=== PATIENT | female | born 1955 | race Hispanic/Latino ===

== ENCOUNTER → 2017-08-05 | Outpatient (CLI) | payer OTHER | END | disposition home or self-care (01) | LOC: RAH 13:29 | PROVIDERS: ATTEND Family Medicine | DX: N60.22 Fibroadenosis of left breast (principal) | CPT/HCPCS: 76641 ==

== ENCOUNTER → 2017-11-15 | Outpatient (CLI) | payer OTHER ==
[~2017-11-15] MED LIST: LIDOCAINE 1%-EPI 1:100,000 20 ML VIAL IJ ONE
[2017-11-15 10:30] LABS: INR 0.95 (0.85-1.15); PARTIAL THROMBOPLASTIN TIME 26.9 SEC (26.3-35.5)
== END | disposition home or self-care (01) ==
LOC: RAH 09:14
PROVIDERS: ATTEND Family Medicine
DX: D05.12 Intraductal carcinoma in situ of left breast (principal); N60.92 Unspecified benign mammary dysplasia of left breast; I99.8 Other disorder of circulatory system
CPT/HCPCS: 19083; 36415; 76942; 77065; 85610; 85730; 88305; A4215 ×3; J3490

== ENCOUNTER → 2018-06-27 | Outpatient (CLI) | payer OTHER | END | disposition home or self-care (01) | LOC: OIH 09:16 | PROVIDERS: ATTEND Family Medicine | DX: M25.472 Effusion, left ankle (principal); M19.072 Primary osteoarthritis, left ankle and foot | CPT/HCPCS: 73610 ==

== ENCOUNTER → 2018-10-31 | Outpatient (CLI) | payer OTHER | END | disposition home or self-care (01) | LOC: RAH 14:54 | PROVIDERS: ATTEND Family Medicine | DX: M25.512 Pain in left shoulder (principal) | CPT/HCPCS: 73221 ==

== ENCOUNTER → 2018-11-10 | Outpatient (CLI) | payer OTHER | END | disposition home or self-care (01) | LOC: RAH 11:23 | PROVIDERS: ATTEND Family Medicine | DX: N28.1 Cyst of kidney, acquired (principal) | CPT/HCPCS: 76770 ==

== ENCOUNTER → 2019-05-17 | Outpatient (CLI) | payer OTHER | END | disposition home or self-care (01) | LOC: OIH 09:53 | PROVIDERS: ATTEND Family Medicine | DX: M25.551 Pain in right hip (principal); M85.88 Other specified disorders of bone density and structure, other site; M47.816 Spondylosis without myelopathy or radiculopathy, lumbar region | CPT/HCPCS: 73502 ==

== ENCOUNTER 2021-05-07 16:21 | Inpatient (IN) | payer OTHER ==
[~2021-05-07] VITALS: Ht 157.5 cm; Wt 91.8 kg
[2021-05-07 16:58] LABS: BASOPHILS % (AUTO) 0.3 % (0.0-5.0); EOSINOPHILS % (AUTO) 0.9 % (0.0-8.0); LYMPHOCYTES % (AUTO) 16.9 % (21.0-51.0); MEAN CORPUSCULAR HEMOGLOBIN 28.1 pg (27.0-33.0); MEAN CORPUSCULAR VOLUME 85.1 fL (79-99); MONOCYTES % (AUTO) 7.8 % (3.0-13.0); NEUTROPHILS % (AUTO) 73.4 % (40.0-77.0); PLATELET COUNT (AUTO) 255 K/uL (130-400); RED CELL DISTRIBUTION WIDTH 13.3 % (11.0-15.5); WHITE BLOOD COUNT (AUTO) 5.8 K/uL (4.8-10.8)
[2021-05-07 16:58] LABS: ABG BASE EXCESS 4.1 mmol/L (-2.0-3.0); ABG HCO3 27.8 mmol/L (21.0-28.0); ABG OXYGEN SATURATION 95.5 % (95.0-99.0); ABG PCO2 39 mmHg (32-45)
[2021-05-07] MEDS ORDERED: FAMOTIDINE 20MG VIAL IV STA (17:06)
[2021-05-07 17:17] LABS: POTASSIUM 3.7 mmol/L (3.5-5.1)
[2021-05-07 17:22] LABS: ALBUMIN 2.1 g/dL (3.5-5.0); BILIRUBIN,TOTAL 0.5 mg/dL (0.2-1.0); TOTAL PROTEIN, SERUM 6.7 g/dL (6.0-8.3)
[2021-05-07] MEDS ORDERED: CEFTRIAXONE 1G VIAL IVP ONE (17:30)
[2021-05-07] MEDS ORDERED: CEFTRIAXONE 1G VIAL 1 GM in 0.9%NACL 100ML 100 ML IV ONE (17:30)
[2021-05-07] MEDS ORDERED: SOLU-MEDROL 125MG VIAL IVP ONE (17:30)
[2021-05-07] MEDS: ALBUTEROL INHALER 90MCG/INH IH SCH ×2 (17:56→23:36)
[2021-05-07] MEDS ORDERED: ALBUTEROL INHALER 90MCG/INH IH ONE (17:56)
[2021-05-07] MEDS ORDERED: AZITHROMYCIN 500MG+NS 250ML IV STA (18:07)
[2021-05-07] MEDS ORDERED: LACTULOSE 20 GM/30 ML UDCUP PO PRN (19:30)
[2021-05-07] MEDS ORDERED: ACETAMINOPHEN 325 MG TAB PO PRN (19:30)
[2021-05-07] MEDS ORDERED: HYDRALAZINE 20MG/ML VIAL IV PRN (19:30)
[2021-05-07] MEDS ORDERED: GUAIFENESIN-DM 200/20 MG 10 ML PO PRN (19:30)
[2021-05-07] MEDS ORDERED: POTASSIUM CHLORIDE 10% ELIXIR 20 MEQ/15 ML UDCUP PO PRN (19:30)
[2021-05-07] MEDS ORDERED: NITROGLYCERIN 0.4 MG SL TAB SL PRN (19:30)
[2021-05-07] MEDS ORDERED: LIDOCAINE HCL-MPF 1% 2ML VIAL IV PRN (19:30)
[2021-05-07] MEDS ORDERED: 0.9%NACL 1000ML 1,000 ML IV SCH (19:30)
[2021-05-07] MEDS ORDERED: ONDANSETRON 4MG INJ IV PRN (19:30)
[2021-05-07] MEDS ORDERED: SOLU-MEDROL 125MG VIAL IV SCH (19:30)
[2021-05-07] MEDS ORDERED: POTASSIUM CHLORIDE 20MEQ/100ML 100 ML IV PRN (19:30)
[2021-05-07] MEDS ORDERED: REMDESIVIR (EUA) 520 200 MG in 0.9% NACL 250ML 250 ML IV ONE (20:00)
[2021-05-07] MEDS ORDERED: COMPOUND IV REFRIGERATED 1 EACH IVSOLN MISC PRN (20:00)
[2021-05-07] MEDS ORDERED: PHARMACY COMMUNICATION MISC SCH (20:00)
[2021-05-07] MEDS ORDERED: GLUCAGON 1MG KIT 1 MG ML IM PRN (21:00)
[2021-05-07] MEDS ORDERED: DEXTROSE 50%-WATER 50 ML DISP.SYRIN IV PRN (21:00)
[2021-05-07] MEDS: INSULIN HUMULIN R 100 UNIT/ML 3ML SQ SCH (21:00)
[2021-05-07 21:31] LABS: HEMOGLOBIN A1C 7.9 % (4.0-6.0)
[2021-05-07] MEDS ORDERED: CETI10TA57 PO (21:33)
[2021-05-07] MEDS ORDERED: BACL10TA PO (21:33)
[2021-05-07] MEDS ORDERED: CANA300T PO (21:33)
[2021-05-07] MEDS ORDERED: ESCI-8 PO (21:33)
[2021-05-07] MEDS ORDERED: ATOR10 PO (21:33)
[2021-05-07] MEDS ORDERED: VITAD50000 PO (21:33)
[2021-05-07] MEDS ORDERED: ISOS30TA92 PO (21:33)
[2021-05-07] MEDS ORDERED: AMLO-258 PO (21:33)
[2021-05-07] MEDS ORDERED: ASPI-1197 PO (21:33)
[2021-05-07] MEDS ORDERED: VALS1TAB77 PO (21:33)
[2021-05-07] MEDS ORDERED: TAMO20TA4 PO (21:33)
[2021-05-07] MEDS ORDERED: OMEP20CA12 PO (21:33)
[2021-05-07] MEDS ORDERED: MONT-39 PO (21:33)
[2021-05-07] MEDS ORDERED: METO-409 PO (21:33)
[2021-05-07 21:36] LABS: ALBUMIN 1.9 g/dL (3.5-5.0); BILIRUBIN,DIRECT 0.2 mg/dL (0.0-0.3); BILIRUBIN,TOTAL 0.4 mg/dL (0.2-1.0); TOTAL PROTEIN, SERUM 6.2 g/dL (6.0-8.3)
[2021-05-07] MEDS ORDERED: IOHEXOL 350 MG/ML 100ML INFUS..BTL IV ONE (21:38)
[2021-05-07] MEDS: SOLU-MEDROL 40MG VIAL IVP SCH (21:55)
[2021-05-07] MEDS: CEFTRIAXONE 1G VIAL IV SCH (21:55)
[2021-05-07] MEDS: FAMOTIDINE 20MG TAB PO SCH (21:55)
[2021-05-07] MEDS: AZITHROMYCIN 250 MG TABLET PO SCH (21:55)
[2021-05-07] MEDS: BENZONATATE 100 MG CAPSULE PO SCH (21:55)
[2021-05-07] MEDS: IPRATROPIUM 0.5 MG/2.5 ML INH IH SCH (22:07)
[2021-05-07 22:28] LABS: APPEARANCE,URINE Clear (CLEAR); BILIRUBIN,URINE Negative (NEGATIVE); COLOR,URINE Yellow (YELLOW); GLUCOSE, URINE (UA) >=1000 mg/dL (NEGATIVE); KETONES,URINE Negative (NEGATIVE); LEUKOCYTE ESTERASE ,URINE Trace (NEGATIVE); NITRATE,URINE Positive (NEGATIVE); OCCULT BLOOD,URINE Negative (NEGATIVE); PH,URINE 6.5 (5.0-8.0); PROTEIN,URINE POS 1+ mg/dL (NEGATIVE)
[2021-05-07 22:41] LABS: RBC,URINE 0-1 /HPF (0-1)
[2021-05-07 22:42] LABS: BACTERIA,URINE Moderate /HPF (None Seen); SQUAMOUS EPITHELIAL CELL,UR Moderate /HPF (0-2)
[2021-05-07 23:10] VITALS: BP 144/65
[2021-05-07] MEDS: KCL 20 MEQ ERTAB PO PRN (23:49)
[2021-05-08] MEDS: IPRATROPIUM 0.5 MG/2.5 ML INH IH SCH ×4 (02:19→15:37)
[2021-05-08] MEDS: SOLU-MEDROL 40MG VIAL IVP SCH ×3 (03:35→20:23)
[2021-05-08] MEDS: KCL 20 MEQ ERTAB PO PRN ×2 (03:35→17:42)
[2021-05-08 03:42] VITALS: BP 143/65
[2021-05-08 04:51] LABS: BASOPHILS % (AUTO) 0.3 % (0.0-5.0); HEMATOCRIT 40.8 % (36-48); MEAN CORPUSCULAR HEMOGLOBIN 28.5 pg (27.0-33.0); MEAN CORPUSCULAR HGB CONC 33.6 g/dL (32.0-36.0); MEAN CORPUSCULAR VOLUME 84.8 fL (79-99); MONOCYTES % (AUTO) 2.8 % (3.0-13.0); NEUTROPHILS % (AUTO) 74.1 % (40.0-77.0); PLATELET COUNT (AUTO) 253 K/uL (130-400); RED BLOOD CELL COUNT(AUTO) 4.81 MIL/uL (4.00-5.50); RED CELL DISTRIBUTION WIDTH 13.5 % (11.0-15.5); WHITE BLOOD COUNT (AUTO) 3.6 K/uL (4.8-10.8)
[2021-05-08 05:24] LABS: BILIRUBIN,TOTAL 0.3 mg/dL (0.2-1.0); CREATININE 0.9 mg/dL (0.5-1.5); MAGNESIUM 2.5 mg/dL (1.80-2.40); PHOSPHORUS 4.3 mg/dL (2.5-4.9); POTASSIUM 3.8 mmol/L (3.5-5.1); THYROID STIMULATING HORMONE 0.4 uIU/mL (0.36-3.74); TOTAL PROTEIN, SERUM 6.6 g/dL (6.0-8.3)
[2021-05-08] MEDS: ALBUTEROL INHALER 90MCG/INH IH SCH ×4 (05:33→23:50)
[2021-05-08] MEDS: REMDESIVIR LABS MISC SCH (06:00)
[2021-05-08] MEDS: INSULIN HUMULIN R 100 UNIT/ML 3ML SQ SCH ×4 (06:16→20:27)
[2021-05-08 08:00] VITALS: BP 134/52
[2021-05-08] MEDS ORDERED: ENOXAPARIN SODIUM 1 MG/KG SQ SCH (09:00)
[2021-05-08] MEDS ORDERED: ENOXAPARIN SODIUM 40 MG/0.4 ML SYRINGE SQ SCH (09:00)
[2021-05-08] MEDS: ENOXAPARIN SODIUM 100 MG/1 ML SQ SCH ×2 (09:48→20:23)
[2021-05-08] MEDS: FAMOTIDINE 20MG TAB PO SCH ×2 (09:48→20:23)
[2021-05-08] MEDS: BENZONATATE 100 MG CAPSULE PO SCH ×3 (09:48→20:23)
[2021-05-08 12:00] VITALS: BP 129/52
[2021-05-08 16:00] VITALS: BP 137/54
[2021-05-08 20:10] VITALS: BP 142/69
[2021-05-08] MEDS: AZITHROMYCIN 250 MG TABLET PO SCH (20:23)
[2021-05-08] MEDS: CEFTRIAXONE 1G VIAL IV SCH (20:24)
[2021-05-08] MEDS: REMDESIVIR (EUA) 520 100 MG in 0.9% NACL 250ML 250 ML IV SCH (20:24)
[2021-05-08 23:33] VITALS: BP 146/73
[2021-05-09] MEDS: SOLU-MEDROL 40MG VIAL IVP SCH ×3 (03:06→21:02)
[2021-05-09 03:53] VITALS: BP 137/63
[2021-05-09 03:59] LABS: BASOPHILS % (AUTO) 0.1 % (0.0-5.0); HEMATOCRIT 40.6 % (36-48); LYMPHOCYTES % (AUTO) 12.1 % (21.0-51.0); MEAN CORPUSCULAR HEMOGLOBIN 28.4 pg (27.0-33.0); MEAN CORPUSCULAR HGB CONC 33.7 g/dL (32.0-36.0); MEAN CORPUSCULAR VOLUME 84.2 fL (79-99); MONOCYTES % (AUTO) 5.3 % (3.0-13.0); NEUTROPHILS % (AUTO) 81.9 % (40.0-77.0); PLATELET COUNT (AUTO) 329 K/uL (130-400); RED BLOOD CELL COUNT(AUTO) 4.82 MIL/uL (4.00-5.50); RED CELL DISTRIBUTION WIDTH 13.5 % (11.0-15.5); WHITE BLOOD COUNT (AUTO) 10.1 K/uL (4.8-10.8)
[2021-05-09 04:21] LABS: ALBUMIN 1.9 g/dL (3.5-5.0); BILIRUBIN,TOTAL 0.2 mg/dL (0.2-1.0); CREATININE 0.8 mg/dL (0.5-1.5); CRP QUANTITATIVE 40.1 mg/L (0.00-9.0); POTASSIUM 3.8 mmol/L (3.5-5.1); TOTAL PROTEIN, SERUM 6.4 g/dL (6.0-8.3)
[2021-05-09] MEDS: REMDESIVIR LABS MISC SCH (04:57)
[2021-05-09] MEDS ORDERED: LOPERAMIDE HCL 2 MG CAP PO PRN (05:00)
[2021-05-09] MEDS: ALBUTEROL INHALER 90MCG/INH IH SCH ×3 (05:16→17:02)
[2021-05-09] MEDS: INSULIN HUMULIN R 100 UNIT/ML 3ML SQ SCH ×4 (06:07→21:27)
[2021-05-09 08:00] VITALS: BP 148/68
[2021-05-09] MEDS: FAMOTIDINE 20MG TAB PO SCH ×2 (08:45→21:02)
[2021-05-09] MEDS: BENZONATATE 100 MG CAPSULE PO SCH ×3 (08:45→21:03)
[2021-05-09] MEDS: ENOXAPARIN SODIUM 100 MG/1 ML SQ SCH ×2 (08:46→21:02)
[2021-05-09 12:00] VITALS: BP 168/72
[2021-05-09] MEDS ORDERED: BACLOFEN 10 MG TABLET PO PRN (13:30)
[2021-05-09] MEDS ORDERED: CETIRIZINE HCL 5 MG TABLET PO PRN (13:30)
[2021-05-09 16:00] VITALS: BP 181/72
[2021-05-09 18:53] VITALS: BP 157/76
[2021-05-09 20:01] VITALS: BP 146/61
[2021-05-09] MEDS ORDERED: PHARMACY COMMUNICATION MISC SCH (21:00)
[2021-05-09] MEDS: LEXAPRO 10 MG PO SCH (21:00)
[2021-05-09] MEDS: CEFTRIAXONE 1G VIAL IV SCH (21:01)
[2021-05-09] MEDS: AZITHROMYCIN 250 MG TABLET PO SCH (21:02)
[2021-05-09] MEDS: REMDESIVIR (EUA) 520 100 MG in 0.9% NACL 250ML 250 ML IV SCH (21:02)
[2021-05-09] MEDS: MONTELUKAST SODIUM 10 MG TAB PO SCH (21:03)
[2021-05-09] MEDS: ATORVASTATIN 20 MG TABLET PO SCH (21:03)
[2021-05-10] VITALS (7 sets, daily range): BP systolic 132–169; BP diastolic 56–72
[2021-05-10] MEDS: ALBUTEROL INHALER 90MCG/INH IH SCH ×4 (01:27→18:31)
[2021-05-10] MEDS: SOLU-MEDROL 40MG VIAL IVP SCH ×3 (03:55→19:59)
[2021-05-10 04:10] LABS: BASOPHILS % (AUTO) 0.2 % (0.0-5.0); LYMPHOCYTES % (AUTO) 10.4 % (21.0-51.0); MEAN CORPUSCULAR HEMOGLOBIN 28.8 pg (27.0-33.0); MEAN CORPUSCULAR HGB CONC 33.7 g/dL (32.0-36.0); MEAN CORPUSCULAR VOLUME 85.6 fL (79-99); MONOCYTES % (AUTO) 4.9 % (3.0-13.0); NEUTROPHILS % (AUTO) 83.3 % (40.0-77.0); PLATELET COUNT (AUTO) 367 K/uL (130-400); RED BLOOD CELL COUNT(AUTO) 4.79 MIL/uL (4.00-5.50); RED CELL DISTRIBUTION WIDTH 13.8 % (11.0-15.5); WHITE BLOOD COUNT (AUTO) 10.8 K/uL (4.8-10.8)
[2021-05-10 04:35] LABS: ALBUMIN 1.9 g/dL (3.5-5.0); BILIRUBIN,TOTAL 0.3 mg/dL (0.2-1.0); CREATININE 0.8 mg/dL (0.5-1.5); POTASSIUM 4.1 mmol/L (3.5-5.1); TOTAL PROTEIN, SERUM 6.2 g/dL (6.0-8.3)
[2021-05-10] MEDS: REMDESIVIR LABS MISC SCH (06:00)
[2021-05-10] MEDS: PANTOPRAZOLE 40 MG TAB DR PO SCH (08:36)
[2021-05-10] MEDS: ASPIRIN 81MG CHEW TAB PO SCH (08:37)
[2021-05-10] MEDS: CITALOPRAM 20 MG TABLET PO SCH (08:37)
[2021-05-10] MEDS: METOPROLOL SUCCINATE 50 MG TAB.SR.24H PO SCH (08:37)
[2021-05-10] MEDS: BENZONATATE 100 MG CAPSULE PO SCH ×3 (08:37→20:03)
[2021-05-10] MEDS: LOSARTAN/HYDROCHLOROTHIAZIDE 50-12.5MG TABLET PO SCH (08:37)
[2021-05-10] MEDS: ISOSORBIDE MONO 30MG SR TAB PO SCH (08:37)
[2021-05-10] MEDS: AMLODIPINE 5 MG TAB PO SCH (08:37)
[2021-05-10] MEDS: TAMOXIFEN CITRATE 10 MG TABLET PO SCH (08:38)
[2021-05-10] MEDS: ENOXAPARIN SODIUM 100 MG/1 ML SQ SCH ×2 (08:38→20:04)
[2021-05-10] MEDS: FAMOTIDINE 20MG TAB PO SCH ×2 (08:39→20:03)
[2021-05-10] MEDS: INSULIN HUMULIN R 100 UNIT/ML 3ML SQ SCH ×3 (11:15→20:05)
[2021-05-10] MEDS: REMDESIVIR (EUA) 520 100 MG in 0.9% NACL 250ML 250 ML IV SCH (19:58)
[2021-05-10] MEDS: CEFTRIAXONE 1G VIAL IV SCH (19:59)
[2021-05-10] MEDS: AZITHROMYCIN 250 MG TABLET PO SCH (19:59)
[2021-05-10] MEDS: MONTELUKAST SODIUM 10 MG TAB PO SCH (20:03)
[2021-05-10] MEDS: ATORVASTATIN 20 MG TABLET PO SCH (20:03)
[2021-05-10] MEDS: LEXAPRO 10 MG PO SCH (20:48)
[2021-05-11] MEDS: ALBUTEROL INHALER 90MCG/INH IH SCH ×5 (00:27→23:35)
[2021-05-11] MEDS: SOLU-MEDROL 40MG VIAL IVP SCH ×3 (03:23→20:02)
[2021-05-11 03:27] VITALS: BP 149/63
[2021-05-11 04:49] LABS: BILIRUBIN,TOTAL 0.4 mg/dL (0.2-1.0); CREATININE 0.8 mg/dL (0.5-1.5); POTASSIUM 3.6 mmol/L (3.5-5.1)
[2021-05-11] MEDS: REMDESIVIR LABS MISC SCH (06:00)
[2021-05-11] MEDS: INSULIN HUMULIN R 100 UNIT/ML 3ML SQ SCH ×4 (06:14→20:06)
[2021-05-11 07:35] LABS: HEMATOCRIT 40.9 % (36-48); MEAN CORPUSCULAR VOLUME 84.9 fL (79-99); PLATELET COUNT (AUTO) 393 K/uL (130-400); RED BLOOD CELL COUNT(AUTO) 4.82 MIL/uL (4.00-5.50); RED CELL DISTRIBUTION WIDTH 13.8 % (11.0-15.5); WHITE BLOOD COUNT (AUTO) 10.5 K/uL (4.8-10.8)
[2021-05-11 08:00] VITALS: BP 183/75
[2021-05-11 08:14] LABS: BASOPHILS % (AUTO) 0.1 % (0.0-5.0); LYMPHOCYTES % (AUTO) 8.9 % (21.0-51.0); MONOCYTES % (AUTO) 5.1 % (3.0-13.0); NEUTROPHILS % (AUTO) 84.8 % (40.0-77.0)
[2021-05-11] MEDS: ASPIRIN 81MG CHEW TAB PO SCH (08:51)
[2021-05-11] MEDS: FAMOTIDINE 20MG TAB PO SCH ×2 (08:52→08:55)
[2021-05-11] MEDS: TAMOXIFEN CITRATE 10 MG TABLET PO SCH (08:52)
[2021-05-11] MEDS: ISOSORBIDE MONO 30MG SR TAB PO SCH (08:52)
[2021-05-11] MEDS: AMLODIPINE 5 MG TAB PO SCH (08:52)
[2021-05-11] MEDS: CITALOPRAM 20 MG TABLET PO SCH (08:52)
[2021-05-11] MEDS: LOSARTAN/HYDROCHLOROTHIAZIDE 50-12.5MG TABLET PO SCH (08:52)
[2021-05-11] MEDS: PANTOPRAZOLE 40 MG TAB DR PO SCH (08:53)
[2021-05-11] MEDS: METOPROLOL SUCCINATE 50 MG TAB.SR.24H PO SCH (08:54)
[2021-05-11] MEDS: BENZONATATE 100 MG CAPSULE PO SCH ×3 (08:54→20:04)
[2021-05-11] MEDS: ENOXAPARIN SODIUM 100 MG/1 ML SQ SCH ×2 (08:54→20:06)
[2021-05-11] MEDS: DIAZEPAM 5 MG TABLET PO PRN (11:48)
[2021-05-11 12:00] VITALS: BP 145/63
[2021-05-11 16:00] VITALS: BP 160/69
[2021-05-11 19:34] VITALS: BP 158/93
[2021-05-11] MEDS: REMDESIVIR (EUA) 520 100 MG in 0.9% NACL 250ML 250 ML IV SCH (20:01)
[2021-05-11] MEDS: AZITHROMYCIN 250 MG TABLET PO SCH (20:02)
[2021-05-11] MEDS: CEFTRIAXONE 1G VIAL IV SCH (20:02)
[2021-05-11] MEDS: ATORVASTATIN 20 MG TABLET PO SCH (20:04)
[2021-05-11] MEDS: MONTELUKAST SODIUM 10 MG TAB PO SCH (20:04)
[2021-05-11] MEDS: LEXAPRO 10 MG PO SCH (20:04)
[2021-05-11] MEDS ORDERED: NACL NASAL SPRAY 120 SPRAY/BOTTLE NS PRN (21:42)
[2021-05-11 23:35] VITALS: BP 133/42
[2021-05-12 03:44] VITALS: BP 160/55
[2021-05-12] MEDS: SOLU-MEDROL 40MG VIAL IVP SCH ×3 (03:44→20:30)
[2021-05-12 04:36] LABS: HEMATOCRIT 39.4 % (36-48); MEAN CORPUSCULAR HEMOGLOBIN 28.4 pg (27.0-33.0); MEAN CORPUSCULAR HGB CONC 33.8 g/dL (32.0-36.0); RED BLOOD CELL COUNT(AUTO) 4.69 MIL/uL (4.00-5.50); RED CELL DISTRIBUTION WIDTH 13.2 % (11.0-15.5); WHITE BLOOD COUNT (AUTO) 9.9 K/uL (4.8-10.8)
[2021-05-12 04:53] LABS: CREATININE 0.8 mg/dL (0.5-1.5); CRP QUANTITATIVE 7.7 mg/L (0.00-9.0); POTASSIUM 3.6 mmol/L (3.5-5.1)
[2021-05-12] MEDS: KCL 20 MEQ ERTAB PO PRN ×2 (06:16→10:12)
[2021-05-12] MEDS: ALBUTEROL INHALER 90MCG/INH IH SCH ×4 (06:17→23:27)
[2021-05-12] MEDS: INSULIN HUMULIN R 100 UNIT/ML 3ML SQ SCH ×4 (06:17→20:32)
[2021-05-12 08:00] VITALS: BP 177/94
[2021-05-12] MEDS: BENZONATATE 100 MG CAPSULE PO SCH ×3 (10:08→20:31)
[2021-05-12] MEDS: METOPROLOL SUCCINATE 50 MG TAB.SR.24H PO SCH (10:08)
[2021-05-12] MEDS: ASPIRIN 81MG CHEW TAB PO SCH (10:09)
[2021-05-12] MEDS: LOSARTAN/HYDROCHLOROTHIAZIDE 50-12.5MG TABLET PO SCH (10:10)
[2021-05-12] MEDS: TAMOXIFEN CITRATE 10 MG TABLET PO SCH (10:11)
[2021-05-12] MEDS: ISOSORBIDE MONO 30MG SR TAB PO SCH (10:11)
[2021-05-12] MEDS: PANTOPRAZOLE 40 MG TAB DR PO SCH (10:11)
[2021-05-12] MEDS: CITALOPRAM 20 MG TABLET PO SCH (10:11)
[2021-05-12] MEDS: AMLODIPINE 5 MG TAB PO SCH (10:11)
[2021-05-12] MEDS: ENOXAPARIN SODIUM 100 MG/1 ML SQ SCH ×2 (10:13→20:31)
[2021-05-12 12:00] VITALS: BP 148/67
[2021-05-12 16:00] VITALS: BP 147/76
[2021-05-12 19:41] VITALS: BP 135/51
[2021-05-12] MEDS: ATORVASTATIN 20 MG TABLET PO SCH (20:30)
[2021-05-12] MEDS: AZITHROMYCIN 250 MG TABLET PO SCH (20:30)
[2021-05-12] MEDS: LEXAPRO 10 MG PO SCH (20:30)
[2021-05-12] MEDS: CEFTRIAXONE 1G VIAL IV SCH (20:30)
[2021-05-12] MEDS: MONTELUKAST SODIUM 10 MG TAB PO SCH (20:30)
[2021-05-12 23:26] VITALS: BP 145/61
[2021-05-13 03:56] VITALS: BP 152/59
[2021-05-13 04:15] LABS: HEMATOCRIT 39.6 % (36-48); MEAN CORPUSCULAR HEMOGLOBIN 28.7 pg (27.0-33.0); MEAN CORPUSCULAR HGB CONC 34.6 g/dL (32.0-36.0); MEAN CORPUSCULAR VOLUME 82.8 fL (79-99); RED BLOOD CELL COUNT(AUTO) 4.78 MIL/uL (4.00-5.50); RED CELL DISTRIBUTION WIDTH 13.3 % (11.0-15.5); WHITE BLOOD COUNT (AUTO) 11.5 K/uL (4.8-10.8)
[2021-05-13 04:36] LABS: CREATININE 0.8 mg/dL (0.5-1.5); CRP QUANTITATIVE 2.8 mg/L (0.00-9.0); POTASSIUM 4.1 mmol/L (3.5-5.1)
[2021-05-13] MEDS: ALBUTEROL INHALER 90MCG/INH IH SCH ×4 (06:01→23:48)
[2021-05-13] MEDS: INSULIN HUMULIN R 100 UNIT/ML 3ML SQ SCH ×4 (06:01→21:37)
[2021-05-13] MEDS: INSULIN GLARGINE 100 UNITS/ML 10 ML VIAL SQ SCH ×2 (06:31→21:38)
[2021-05-13 08:00] VITALS: BP 141/56
[2021-05-13] MEDS: PANTOPRAZOLE 40 MG TAB DR PO SCH (09:03)
[2021-05-13] MEDS: LOSARTAN/HYDROCHLOROTHIAZIDE 50-12.5MG TABLET PO SCH (09:03)
[2021-05-13] MEDS: METOPROLOL SUCCINATE 50 MG TAB.SR.24H PO SCH (09:03)
[2021-05-13] MEDS: BENZONATATE 100 MG CAPSULE PO SCH ×3 (09:03→21:36)
[2021-05-13] MEDS: CITALOPRAM 20 MG TABLET PO SCH (09:04)
[2021-05-13] MEDS: ISOSORBIDE MONO 30MG SR TAB PO SCH (09:04)
[2021-05-13] MEDS: TAMOXIFEN CITRATE 10 MG TABLET PO SCH (09:04)
[2021-05-13] MEDS: AMLODIPINE 5 MG TAB PO SCH (09:04)
[2021-05-13] MEDS: SOLU-MEDROL 40MG VIAL IVP SCH ×2 (09:05→21:36)
[2021-05-13] MEDS: ENOXAPARIN SODIUM 100 MG/1 ML SQ SCH ×2 (09:05→21:37)
[2021-05-13] MEDS: ASPIRIN 81MG CHEW TAB PO SCH (09:05)
[2021-05-13 12:00] VITALS: BP 147/55
[2021-05-13 16:00] VITALS: BP 135/51
[2021-05-13 19:56] VITALS: BP 129/52
[2021-05-13] MEDS: CEFTRIAXONE 1G VIAL IV SCH (21:35)
[2021-05-13] MEDS: AZITHROMYCIN 250 MG TABLET PO SCH (21:35)
[2021-05-13] MEDS: ATORVASTATIN 20 MG TABLET PO SCH (21:36)
[2021-05-13] MEDS: LEXAPRO 10 MG PO SCH (21:36)
[2021-05-13] MEDS: MONTELUKAST SODIUM 10 MG TAB PO SCH (21:36)
[2021-05-13 23:44] VITALS: BP 157/59
[2021-05-14 04:16] VITALS: BP 144/52
[2021-05-14 04:25] LABS: CREATININE 0.8 mg/dL (0.5-1.5); POTASSIUM 4.2 mmol/L (3.5-5.1)
[2021-05-14 04:26] LABS: HEMATOCRIT 40.1 % (36-48); MEAN CORPUSCULAR HEMOGLOBIN 28.2 pg (27.0-33.0); MEAN CORPUSCULAR HGB CONC 33.4 g/dL (32.0-36.0); MEAN CORPUSCULAR VOLUME 84.4 fL (79-99); RED BLOOD CELL COUNT(AUTO) 4.75 MIL/uL (4.00-5.50); RED CELL DISTRIBUTION WIDTH 13.3 % (11.0-15.5); WHITE BLOOD COUNT (AUTO) 12.2 K/uL (4.8-10.8)
[2021-05-14] MEDS: ALBUTEROL INHALER 90MCG/INH IH SCH ×3 (06:24→17:22)
[2021-05-14] MEDS: INSULIN HUMULIN R 100 UNIT/ML 3ML SQ SCH ×4 (06:25→20:26)
[2021-05-14] MEDS: INSULIN GLARGINE 100 UNITS/ML 10 ML VIAL SQ SCH ×2 (06:26→20:26)
[2021-05-14 07:00] VITALS: BP 157/78
[2021-05-14] MEDS: LOSARTAN/HYDROCHLOROTHIAZIDE 50-12.5MG TABLET PO SCH (08:53)
[2021-05-14] MEDS: ENOXAPARIN SODIUM 100 MG/1 ML SQ SCH ×2 (08:53→20:25)
[2021-05-14] MEDS: BENZONATATE 100 MG CAPSULE PO SCH ×3 (08:54→20:23)
[2021-05-14] MEDS: ISOSORBIDE MONO 30MG SR TAB PO SCH (08:54)
[2021-05-14] MEDS: METOPROLOL SUCCINATE 50 MG TAB.SR.24H PO SCH (08:54)
[2021-05-14] MEDS: CITALOPRAM 20 MG TABLET PO SCH (08:55)
[2021-05-14] MEDS: PANTOPRAZOLE 40 MG TAB DR PO SCH (08:55)
[2021-05-14] MEDS: AMLODIPINE 5 MG TAB PO SCH (08:55)
[2021-05-14] MEDS: TAMOXIFEN CITRATE 10 MG TABLET PO SCH (08:55)
[2021-05-14] MEDS: ASPIRIN 81MG CHEW TAB PO SCH (08:55)
[2021-05-14] MEDS ORDERED: SOLU-MEDROL 40MG VIAL IVP SCH (09:00)
[2021-05-14 11:00] VITALS: BP 147/50
[2021-05-14 16:00] VITALS: BP 136/42
[2021-05-14 19:59] VITALS: BP 130/47
[2021-05-14] MEDS: MONTELUKAST SODIUM 10 MG TAB PO SCH (20:23)
[2021-05-14] MEDS: ATORVASTATIN 20 MG TABLET PO SCH (20:23)
[2021-05-14] MEDS: CEFTRIAXONE 1G VIAL IV SCH (20:23)
[2021-05-14] MEDS: SOLU-MEDROL 40MG VIAL IVP SCH (20:23)
[2021-05-14] MEDS: AZITHROMYCIN 250 MG TABLET PO SCH (20:23)
[2021-05-14] MEDS: LEXAPRO 10 MG PO SCH (20:27)
[2021-05-14] MEDS: DIAZEPAM 5 MG TABLET PO PRN (21:44)
[2021-05-15] VITALS (7 sets, daily range): BP systolic 125–154; BP diastolic 45–66
[2021-05-15] MEDS: ALBUTEROL INHALER 90MCG/INH IH SCH ×5 (00:31→23:41)
[2021-05-15 04:15] LABS: BASOPHILS % (AUTO) 0.2 % (0.0-5.0); LYMPHOCYTES % (AUTO) 5.8 % (21.0-51.0); MEAN CORPUSCULAR HEMOGLOBIN 28.4 pg (27.0-33.0); MEAN CORPUSCULAR HGB CONC 33.1 g/dL (32.0-36.0); MEAN CORPUSCULAR VOLUME 85.7 fL (79-99); MONOCYTES % (AUTO) 4.1 % (3.0-13.0); NEUTROPHILS % (AUTO) 88.5 % (40.0-77.0); PLATELET COUNT (AUTO) 309 K/uL (130-400); RED BLOOD CELL COUNT(AUTO) 4.55 MIL/uL (4.00-5.50); RED CELL DISTRIBUTION WIDTH 13.5 % (11.0-15.5); WHITE BLOOD COUNT (AUTO) 13.3 K/uL (4.8-10.8)
[2021-05-15 04:30] LABS: CARBON DIOXIDE 30 mmol/L (21-32); CHLORIDE 105 mmol/L (101-111); CREATININE 0.8 mg/dL (0.5-1.5); CRP QUANTITATIVE < 2.00 mg/L (0.00-9.0); GLOMERULAR FILTR. RATE CALC 76 mL/min (>60); GLUCOSE,RANDOM 243 mg/dL (70-105); POTASSIUM 4.3 mmol/L (3.5-5.1); SODIUM SERUM 141 mmol/L (136-145); UREA NITROGEN, BLOOD 26 mg/dL (7-18)
[2021-05-15] MEDS: INSULIN HUMULIN R 100 UNIT/ML 3ML SQ SCH ×4 (06:21→20:27)
[2021-05-15] MEDS: INSULIN GLARGINE 100 UNITS/ML 10 ML VIAL SQ SCH ×2 (06:22→20:28)
[2021-05-15 08:07] LABS: ABG BASE EXCESS 6.2 mmol/L (-2.0-3.0); ABG HCO3 30.7 mmol/L (21.0-28.0); ABG PCO2 43 mmHg (32-45)
[2021-05-15] MEDS: ASPIRIN 81MG CHEW TAB PO SCH (09:19)
[2021-05-15] MEDS: ENOXAPARIN SODIUM 100 MG/1 ML SQ SCH ×2 (09:19→20:28)
[2021-05-15] MEDS: TAMOXIFEN CITRATE 10 MG TABLET PO SCH (09:19)
[2021-05-15] MEDS: ISOSORBIDE MONO 30MG SR TAB PO SCH (09:19)
[2021-05-15] MEDS: SOLU-MEDROL 40MG VIAL IVP SCH ×2 (09:20→20:25)
[2021-05-15] MEDS: PANTOPRAZOLE 40 MG TAB DR PO SCH (09:20)
[2021-05-15] MEDS: AMLODIPINE 5 MG TAB PO SCH (09:20)
[2021-05-15] MEDS: BENZONATATE 100 MG CAPSULE PO SCH ×3 (09:20→20:26)
[2021-05-15] MEDS: METOPROLOL SUCCINATE 50 MG TAB.SR.24H PO SCH (09:20)
[2021-05-15] MEDS: CITALOPRAM 20 MG TABLET PO SCH (09:20)
[2021-05-15] MEDS: LOSARTAN/HYDROCHLOROTHIAZIDE 50-12.5MG TABLET PO SCH (09:20)
[2021-05-15] MEDS ORDERED: INSULIN HUMULIN R 100 UNIT/ML 3ML SQ ONE (18:00)
[2021-05-15] MEDS: CEFTRIAXONE 1G VIAL IV SCH (20:25)
[2021-05-15] MEDS: AZITHROMYCIN 250 MG TABLET PO SCH (20:25)
[2021-05-15] MEDS: ATORVASTATIN 20 MG TABLET PO SCH (20:25)
[2021-05-15] MEDS: MONTELUKAST SODIUM 10 MG TAB PO SCH (20:26)
[2021-05-15] MEDS: LEXAPRO 10 MG PO SCH (20:26)
[2021-05-15] MEDS: DIAZEPAM 5 MG TABLET PO PRN (20:58)
[2021-05-15] MEDS ORDERED: INSULIN GLARGINE 100 UNITS/ML 10 ML VIAL SQ SCH (21:00)
[2021-05-16 03:24] VITALS: BP 145/51
[2021-05-16 04:08] LABS: HEMATOCRIT 38.5 % (36-48); MEAN CORPUSCULAR HEMOGLOBIN 28.3 pg (27.0-33.0); MEAN CORPUSCULAR HGB CONC 33.2 g/dL (32.0-36.0); RED BLOOD CELL COUNT(AUTO) 4.53 MIL/uL (4.00-5.50); RED CELL DISTRIBUTION WIDTH 13.4 % (11.0-15.5); WHITE BLOOD COUNT (AUTO) 12.1 K/uL (4.8-10.8)
[2021-05-16 04:15] LABS: CREATININE 0.8 mg/dL (0.5-1.5); POTASSIUM 4.1 mmol/L (3.5-5.1)
[2021-05-16] MEDS: ALBUTEROL INHALER 90MCG/INH IH SCH ×3 (06:24→16:51)
[2021-05-16] MEDS: INSULIN HUMULIN R 100 UNIT/ML 3ML SQ SCH ×4 (06:25→20:13)
[2021-05-16] MEDS: INSULIN GLARGINE 100 UNITS/ML 10 ML VIAL SQ SCH ×2 (06:26→20:03)
[2021-05-16 08:00] VITALS: BP 138/57
[2021-05-16] MEDS: PANTOPRAZOLE 40 MG TAB DR PO SCH (08:25)
[2021-05-16] MEDS: CITALOPRAM 20 MG TABLET PO SCH (08:25)
[2021-05-16] MEDS: SOLU-MEDROL 40MG VIAL IVP SCH ×2 (08:25→20:01)
[2021-05-16] MEDS: TAMOXIFEN CITRATE 10 MG TABLET PO SCH (08:25)
[2021-05-16] MEDS: ISOSORBIDE MONO 30MG SR TAB PO SCH (08:26)
[2021-05-16] MEDS: LOSARTAN/HYDROCHLOROTHIAZIDE 50-12.5MG TABLET PO SCH (08:26)
[2021-05-16] MEDS: AMLODIPINE 5 MG TAB PO SCH (08:26)
[2021-05-16] MEDS: METOPROLOL SUCCINATE 50 MG TAB.SR.24H PO SCH (08:26)
[2021-05-16] MEDS: BENZONATATE 100 MG CAPSULE PO SCH ×3 (08:26→20:01)
[2021-05-16] MEDS: ERGOCALCIFEROL (VITAMIN D2) 50,000 UNIT CAPSULE PO SCH (08:27)
[2021-05-16] MEDS: ASPIRIN 81MG CHEW TAB PO SCH (08:27)
[2021-05-16] MEDS: ENOXAPARIN SODIUM 100 MG/1 ML SQ SCH ×2 (08:27→19:59)
[2021-05-16 12:00] VITALS: BP 132/63
[2021-05-16 16:00] VITALS: BP 137/42
[2021-05-16] MEDS: AZITHROMYCIN 250 MG TABLET PO SCH (19:58)
[2021-05-16] MEDS: MONTELUKAST SODIUM 10 MG TAB PO SCH (19:58)
[2021-05-16] MEDS: DIAZEPAM 5 MG TABLET PO PRN (19:58)
[2021-05-16] MEDS: ATORVASTATIN 20 MG TABLET PO SCH (19:58)
[2021-05-16] MEDS: LEXAPRO 10 MG PO SCH (19:59)
[2021-05-16 20:30] VITALS: BP 143/72
[2021-05-16 23:43] VITALS: BP 162/58
[2021-05-17 03:59] VITALS: BP 157/62
[2021-05-17 04:08] LABS: BASOPHILS % (AUTO) 0.3 % (0.0-5.0); HEMATOCRIT 38.8 % (36-48); LYMPHOCYTES % (AUTO) 5.2 % (21.0-51.0); MEAN CORPUSCULAR HEMOGLOBIN 28.6 pg (27.0-33.0); MEAN CORPUSCULAR HGB CONC 33.5 g/dL (32.0-36.0); MEAN CORPUSCULAR VOLUME 85.3 fL (79-99); MONOCYTES % (AUTO) 4.1 % (3.0-13.0); PLATELET COUNT (AUTO) 273 K/uL (130-400); RED BLOOD CELL COUNT(AUTO) 4.55 MIL/uL (4.00-5.50); RED CELL DISTRIBUTION WIDTH 13.3 % (11.0-15.5); WHITE BLOOD COUNT (AUTO) 15.3 K/uL (4.8-10.8)
[2021-05-17 04:33] LABS: CARBON DIOXIDE 29 mmol/L (21-32); CHLORIDE 105 mmol/L (101-111); CREATININE 0.7 mg/dL (0.5-1.5); GLOMERULAR FILTR. RATE CALC 88 mL/min (>60); GLUCOSE,RANDOM 227 mg/dL (70-105); POTASSIUM 4.3 mmol/L (3.5-5.1); SODIUM SERUM 140 mmol/L (136-145); UREA NITROGEN, BLOOD 29 mg/dL (7-18)
[2021-05-17 04:35] LABS: CRP QUANTITATIVE < 2.00 mg/L (0.00-9.0)
[2021-05-17] MEDS: ALBUTEROL INHALER 90MCG/INH IH SCH ×4 (05:58→17:09)
[2021-05-17] MEDS: INSULIN HUMULIN R 100 UNIT/ML 3ML SQ SCH ×4 (05:59→21:11)
[2021-05-17] MEDS: INSULIN GLARGINE 100 UNITS/ML 10 ML VIAL SQ SCH ×2 (05:59→20:23)
[2021-05-17 08:30] VITALS: BP 162/59
[2021-05-17] MEDS: ERGOCALCIFEROL (VITAMIN D2) 50,000 UNIT CAPSULE PO SCH (09:39)
[2021-05-17] MEDS: SOLU-MEDROL 40MG VIAL IVP SCH ×2 (09:39→20:22)
[2021-05-17] MEDS: ENOXAPARIN SODIUM 100 MG/1 ML SQ SCH ×2 (09:39→20:22)
[2021-05-17] MEDS: TAMOXIFEN CITRATE 10 MG TABLET PO SCH (09:39)
[2021-05-17] MEDS: LOSARTAN/HYDROCHLOROTHIAZIDE 50-12.5MG TABLET PO SCH (09:40)
[2021-05-17] MEDS: ASPIRIN 81MG CHEW TAB PO SCH (09:40)
[2021-05-17] MEDS: PANTOPRAZOLE 40 MG TAB DR PO SCH (09:40)
[2021-05-17] MEDS: BENZONATATE 100 MG CAPSULE PO SCH ×3 (09:40→20:22)
[2021-05-17] MEDS: ISOSORBIDE MONO 30MG SR TAB PO SCH (09:41)
[2021-05-17] MEDS: METOPROLOL SUCCINATE 50 MG TAB.SR.24H PO SCH (09:41)
[2021-05-17] MEDS: AMLODIPINE 5 MG TAB PO SCH (09:41)
[2021-05-17 12:00] VITALS: BP 149/65
[2021-05-17 16:00] VITALS: BP 136/58
[2021-05-17] MEDS ORDERED: INSULIN HUMULIN R 100 UNIT/ML 3ML SQ ONE (16:40)
[2021-05-17 20:00] VITALS: BP 157/70
[2021-05-17] MEDS: AZITHROMYCIN 250 MG TABLET PO SCH (20:22)
[2021-05-17] MEDS: MONTELUKAST SODIUM 10 MG TAB PO SCH (20:22)
[2021-05-17] MEDS: DIAZEPAM 5 MG TABLET PO PRN (20:22)
[2021-05-17] MEDS: ATORVASTATIN 20 MG TABLET PO SCH (20:22)
[2021-05-17] MEDS: LEXAPRO 10 MG PO SCH (20:26)
[2021-05-18] VITALS: BP 143/52
[2021-05-18] MEDS: ALBUTEROL INHALER 90MCG/INH IH SCH ×4 (00:06→17:31)
[2021-05-18 04:00] VITALS: BP 143/68
[2021-05-18 05:47] LABS: HEMATOCRIT 38.5 % (36-48); MEAN CORPUSCULAR HEMOGLOBIN 28.4 pg (27.0-33.0); MEAN CORPUSCULAR HGB CONC 33.8 g/dL (32.0-36.0); MEAN CORPUSCULAR VOLUME 84.2 fL (79-99); RED BLOOD CELL COUNT(AUTO) 4.57 MIL/uL (4.00-5.50); RED CELL DISTRIBUTION WIDTH 13.3 % (11.0-15.5); WHITE BLOOD COUNT (AUTO) 13.3 K/uL (4.8-10.8)
[2021-05-18 06:19] LABS: ALBUMIN 1.9 g/dL (3.5-5.0); BILIRUBIN,TOTAL 0.3 mg/dL (0.2-1.0); CREATININE 0.6 mg/dL (0.5-1.5); POTASSIUM 4.2 mmol/L (3.5-5.1); TOTAL PROTEIN, SERUM 5.9 g/dL (6.0-8.3)
[2021-05-18 08:00] VITALS: BP 131/52
[2021-05-18] MEDS: INSULIN HUMULIN R 100 UNIT/ML 3ML SQ SCH ×4 (08:33→20:20)
[2021-05-18] MEDS: INSULIN GLARGINE 100 UNITS/ML 10 ML VIAL SQ SCH ×2 (08:34→20:21)
[2021-05-18] MEDS: ASPIRIN 81MG CHEW TAB PO SCH (08:50)
[2021-05-18] MEDS: TAMOXIFEN CITRATE 10 MG TABLET PO SCH (08:50)
[2021-05-18] MEDS: LOSARTAN/HYDROCHLOROTHIAZIDE 50-12.5MG TABLET PO SCH (08:50)
[2021-05-18] MEDS: BENZONATATE 100 MG CAPSULE PO SCH ×3 (08:51→20:19)
[2021-05-18] MEDS: ISOSORBIDE MONO 30MG SR TAB PO SCH (08:51)
[2021-05-18] MEDS: PANTOPRAZOLE 40 MG TAB DR PO SCH (08:51)
[2021-05-18] MEDS: AMLODIPINE 5 MG TAB PO SCH (08:51)
[2021-05-18] MEDS: ENOXAPARIN SODIUM 100 MG/1 ML SQ SCH ×2 (08:52→20:19)
[2021-05-18] MEDS: SOLU-MEDROL 40MG VIAL IVP SCH ×2 (08:52→20:18)
[2021-05-18 12:00] VITALS: BP 138/54
[2021-05-18] MEDS: FUROSEMIDE 20MG VIAL IV SCH ×2 (13:03→20:18)
[2021-05-18 16:00] VITALS: BP 117/51
[2021-05-18] MEDS ORDERED: INSULIN HUMULIN R 100 UNIT/ML 3ML SQ ONE (17:30)
[2021-05-18 19:26] VITALS: BP 142/63
[2021-05-18] MEDS: AZITHROMYCIN 250 MG TABLET PO SCH (20:18)
[2021-05-18] MEDS: LEXAPRO 10 MG PO SCH (20:19)
[2021-05-18] MEDS: MONTELUKAST SODIUM 10 MG TAB PO SCH (20:19)
[2021-05-18] MEDS: ATORVASTATIN 20 MG TABLET PO SCH (20:19)
[2021-05-19 00:14] VITALS: BP 126/59
[2021-05-19] MEDS: ALBUTEROL INHALER 90MCG/INH IH SCH ×5 (00:15→23:53)
[2021-05-19 03:58] VITALS: BP 142/67
[2021-05-19] MEDS: INSULIN GLARGINE 100 UNITS/ML 10 ML VIAL SQ SCH ×2 (06:31→20:33)
[2021-05-19] MEDS: INSULIN LISPRO 100 UNIT/ML 3ML SQ SCH ×4 (06:32→20:34)
[2021-05-19 07:50] VITALS: BP 129/56
[2021-05-19] MEDS: PANTOPRAZOLE 40 MG TAB DR PO SCH (08:34)
[2021-05-19] MEDS: LOSARTAN/HYDROCHLOROTHIAZIDE 50-12.5MG TABLET PO SCH (08:34)
[2021-05-19] MEDS: ASPIRIN 81MG CHEW TAB PO SCH (08:34)
[2021-05-19] MEDS: AMLODIPINE 5 MG TAB PO SCH (08:34)
[2021-05-19] MEDS: METOPROLOL SUCCINATE 50 MG TAB.SR.24H PO SCH (08:35)
[2021-05-19] MEDS: SOLU-MEDROL 40MG VIAL IVP SCH ×2 (08:35→20:31)
[2021-05-19] MEDS: BENZONATATE 100 MG CAPSULE PO SCH ×3 (08:35→20:32)
[2021-05-19] MEDS: FUROSEMIDE 20MG VIAL IV SCH ×2 (08:35→20:31)
[2021-05-19] MEDS: ISOSORBIDE MONO 30MG SR TAB PO SCH (08:36)
[2021-05-19] MEDS: TAMOXIFEN CITRATE 10 MG TABLET PO SCH (08:36)
[2021-05-19] MEDS: ENOXAPARIN SODIUM 100 MG/1 ML SQ SCH ×2 (08:41→20:34)
[2021-05-19 15:55] VITALS: BP 128/59
[2021-05-19 19:43] VITALS: BP 130/44
[2021-05-19] MEDS: AZITHROMYCIN 250 MG TABLET PO SCH (20:31)
[2021-05-19] MEDS: ATORVASTATIN 20 MG TABLET PO SCH (20:32)
[2021-05-19] MEDS: LEXAPRO 10 MG PO SCH (20:32)
[2021-05-19] MEDS: MONTELUKAST SODIUM 10 MG TAB PO SCH (20:32)
[2021-05-19 23:51] VITALS: BP 120/51
[2021-05-20 03:34] VITALS: BP 120/52
[2021-05-20 04:30] LABS: HEMATOCRIT 36.6 % (36-48); MEAN CORPUSCULAR HEMOGLOBIN 28.4 pg (27.0-33.0); MEAN CORPUSCULAR HGB CONC 33.3 g/dL (32.0-36.0); MEAN CORPUSCULAR VOLUME 85.1 fL (79-99); RED BLOOD CELL COUNT(AUTO) 4.3 MIL/uL (4.00-5.50); RED CELL DISTRIBUTION WIDTH 13.5 % (11.0-15.5); WHITE BLOOD COUNT (AUTO) 12.7 K/uL (4.8-10.8)
[2021-05-20 04:47] LABS: CREATININE 0.8 mg/dL (0.5-1.5); POTASSIUM 3.8 mmol/L (3.5-5.1)
[2021-05-20] MEDS: INSULIN LISPRO 100 UNIT/ML 3ML SQ SCH ×4 (06:04→20:32)
[2021-05-20] MEDS: ALBUTEROL INHALER 90MCG/INH IH SCH ×4 (06:31→23:55)
[2021-05-20] MEDS: INSULIN GLARGINE 100 UNITS/ML 10 ML VIAL SQ SCH ×2 (06:32→20:31)
[2021-05-20 08:30] VITALS: BP 120/53
[2021-05-20] MEDS: ASPIRIN 81MG CHEW TAB PO SCH (08:50)
[2021-05-20] MEDS: PANTOPRAZOLE 40 MG TAB DR PO SCH (08:50)
[2021-05-20] MEDS: TAMOXIFEN CITRATE 10 MG TABLET PO SCH (08:50)
[2021-05-20] MEDS: AMLODIPINE 5 MG TAB PO SCH (08:51)
[2021-05-20] MEDS: METOPROLOL SUCCINATE 50 MG TAB.SR.24H PO SCH (08:52)
[2021-05-20] MEDS: SOLU-MEDROL 40MG VIAL IVP SCH ×2 (08:52→20:29)
[2021-05-20] MEDS: FUROSEMIDE 20MG VIAL IV SCH ×2 (08:52→20:28)
[2021-05-20] MEDS: BENZONATATE 100 MG CAPSULE PO SCH ×3 (08:52→20:29)
[2021-05-20] MEDS: ISOSORBIDE MONO 30MG SR TAB PO SCH (08:52)
[2021-05-20] MEDS: LOSARTAN/HYDROCHLOROTHIAZIDE 50-12.5MG TABLET PO SCH (08:52)
[2021-05-20] MEDS: ENOXAPARIN SODIUM 100 MG/1 ML SQ SCH ×2 (08:53→20:30)
[2021-05-20 12:11] VITALS: BP 116/62
[2021-05-20 16:37] VITALS: BP 112/50
[2021-05-20 19:35] VITALS: BP 123/48
[2021-05-20] MEDS: AZITHROMYCIN 250 MG TABLET PO SCH (20:28)
[2021-05-20] MEDS: LEXAPRO 10 MG PO SCH (20:29)
[2021-05-20] MEDS: ATORVASTATIN 20 MG TABLET PO SCH (20:29)
[2021-05-20] MEDS: MONTELUKAST SODIUM 10 MG TAB PO SCH (20:29)
[2021-05-20 23:54] VITALS: BP 129/52
[2021-05-21 03:43] VITALS: BP 148/55
[2021-05-21] MEDS: INSULIN LISPRO 100 UNIT/ML 3ML SQ SCH ×3 (06:25→17:08)
[2021-05-21] MEDS: ALBUTEROL INHALER 90MCG/INH IH SCH ×3 (06:25→16:53)
[2021-05-21] MEDS: INSULIN GLARGINE 100 UNITS/ML 10 ML VIAL SQ SCH (06:26)
[2021-05-21 07:54] LABS: HEMATOCRIT 37.2 % (36-48); MEAN CORPUSCULAR HGB CONC 32.8 g/dL (32.0-36.0); MEAN CORPUSCULAR VOLUME 85.3 fL (79-99); RED BLOOD CELL COUNT(AUTO) 4.36 MIL/uL (4.00-5.50); RED CELL DISTRIBUTION WIDTH 13.5 % (11.0-15.5); WHITE BLOOD COUNT (AUTO) 11.4 K/uL (4.8-10.8)
[2021-05-21 08:00] VITALS: BP 144/50
[2021-05-21 08:11] LABS: CARBON DIOXIDE 36 mmol/L (21-32); CHLORIDE 103 mmol/L (101-111); CREATININE 0.7 mg/dL (0.5-1.5); GLOMERULAR FILTR. RATE CALC 88 mL/min (>60); GLUCOSE,RANDOM 98 mg/dL (70-105); POTASSIUM 3.5 mmol/L (3.5-5.1); SODIUM SERUM 143 mmol/L (136-145); UREA NITROGEN, BLOOD 38 mg/dL (7-18)
[2021-05-21 08:14] LABS: CRP QUANTITATIVE < 2.00 mg/L (0.00-9.0)
[2021-05-21] MEDS: SOLU-MEDROL 40MG VIAL IVP SCH (08:41)
[2021-05-21] MEDS: METOPROLOL SUCCINATE 50 MG TAB.SR.24H PO SCH (08:42)
[2021-05-21] MEDS: TAMOXIFEN CITRATE 10 MG TABLET PO SCH (08:42)
[2021-05-21] MEDS: ASPIRIN 81MG CHEW TAB PO SCH (08:42)
[2021-05-21] MEDS: AMLODIPINE 5 MG TAB PO SCH (08:42)
[2021-05-21] MEDS: LOSARTAN/HYDROCHLOROTHIAZIDE 50-12.5MG TABLET PO SCH (08:42)
[2021-05-21] MEDS: BENZONATATE 100 MG CAPSULE PO SCH ×2 (08:42→12:26)
[2021-05-21] MEDS: ISOSORBIDE MONO 30MG SR TAB PO SCH (08:43)
[2021-05-21] MEDS: ENOXAPARIN SODIUM 100 MG/1 ML SQ SCH (08:43)
[2021-05-21] MEDS: PANTOPRAZOLE 40 MG TAB DR PO SCH (08:43)
[2021-05-21 12:00] VITALS: BP 143/49
[2021-05-21] MEDS: KCL 20 MEQ ERTAB PO PRN (13:29)
[2021-05-21 16:00] VITALS: BP 126/44
[2021-05-21] MEDS ORDERED: PRED20TA3 PO ×2 (18:18→18:19)
[2021-05-21] MEDS ORDERED: ONDA4TAB4 PO (18:21)
== END 2021-05-21 18:48 | DRG 177 ==
LOC: EDH 16:21 → OBSVTOIN 19:28 → EDHIP 19:28 → 2AH 22:31
PROVIDERS: ADMIT Internal Medicine Pulmonary Disease; ATTEND Internal Medicine Pulmonary Disease
PROC: XW033E5 Introduction of Remdesivir Anti-infective into Peripheral Vein, Percutaneous Approach, New Technology Group 5 (ICD-10-PCS; principal; 2021-05-07)
PROC: 5A0935A Assistance with Respiratory Ventilation, Less than 24 Consecutive Hours, High Flow/Velocity Cannula (ICD-10-PCS; 2021-05-14)
PROC: 5A0935A Assistance with Respiratory Ventilation, Less than 24 Consecutive Hours, High Flow/Velocity Cannula (ICD-10-PCS; 2021-05-15)
PROC: 5A0935A Assistance with Respiratory Ventilation, Less than 24 Consecutive Hours, High Flow/Velocity Cannula (ICD-10-PCS; 2021-05-16)
PROC: 5A0935A Assistance with Respiratory Ventilation, Less than 24 Consecutive Hours, High Flow/Velocity Cannula (ICD-10-PCS; 2021-05-18)
PROC: 5A0935A Assistance with Respiratory Ventilation, Less than 24 Consecutive Hours, High Flow/Velocity Cannula (ICD-10-PCS; 2021-05-21)
DX: U07.1 COVID-19 (principal); J12.82 Pneumonia due to coronavirus disease 2019; J96.01 Acute respiratory failure with hypoxia; N39.0 Urinary tract infection, site not specified; E66.01 Morbid (severe) obesity due to excess calories; Z68.37 Body mass index [BMI] 37.0-37.9, adult; E11.9 Type 2 diabetes mellitus without complications; I10 Essential (primary) hypertension; I25.10 Atherosclerotic heart disease of native coronary artery without angina pectoris; J45.909 Unspecified asthma, uncomplicated; Z88.8 Allergy status to other drugs, medicaments and biological substances; Z91.041 Radiographic dye allergy status; Z79.82 Long term (current) use of aspirin; Z79.84 Long term (current) use of oral hypoglycemic drugs; Z79.899 Other long term (current) drug therapy
CPT/HCPCS: 36415; 36600; 71045; 71250; 80048; 80053; 80076; 81001; 82435; 82803; 82947; 82948; 83036; 83605; 83630; 83735; 84100; 84132; 84145; 84295; 84443; 84484; 85018; 85025; 85027; 85378; 86140; 87046; 87088; 87324; 87635; 93005; 93970; 94640; 94664; 97039; G0378; J0360; J0456; J0696; J1650; J1815; J1940; J2920; J2930; J3490; J7030; J7050; Q9967

== ENCOUNTER → 2021-07-07 | Outpatient (CLI) | payer OTHER ==
[~2021-07-07] MED LIST changes: +AMLO-258 PO; +ASPI-1197 PO; +ATOR10 PO; +BACL10TA PO; +CANA300T PO; +CETI10TA57 PO; +ESCI-8 PO; +ISOS30TA92 PO; -LIDOCAINE 1%-EPI 1:100,000 20 ML VIAL IJ ONE; +METO-409 PO; +MONT-39 PO; +OMEP20CA12 PO; +ONDA4TAB4 PO; +PRED20TA3 PO; +TAMO20TA4 PO; +VALS1TAB77 PO; +VITAD50000 PO
== END | disposition home or self-care (01) ==
LOC: OIH 15:17
PROVIDERS: ATTEND Internal Medicine Cardiovascular Disease
DX: I25.10 Atherosclerotic heart disease of native coronary artery without angina pectoris (principal); I10 Essential (primary) hypertension
CPT/HCPCS: 93306; 93356

== ENCOUNTER → 2022-10-21 | Outpatient (CLI) | payer OTHER | END | disposition home or self-care (01) | LOC: RAH 13:58 | PROVIDERS: ATTEND Family Medicine | DX: Z12.31 Encounter for screening mammogram for malignant neoplasm of breast (principal) | CPT/HCPCS: 77067 ==

== ENCOUNTER → 2024-06-13 | Outpatient (CLI) | payer OTHER ==
[~2024-06-13] MED LIST changes: +metoPROLOL tartRATE 1 MG/ML 5ML VIAL IV ONE
[2024-06-13] MEDS: REGADENOSON 0.4 MG/5 ML PF SYG IVP ONE (11:52)
--- NOTE | 2024-06-16 15:55 | HMCSR ---
APPROVED REPORT Height: 5 ft 2in Weight: 194 lbs TEST INDICATIONS CAD The imaging protocol used to acquire images was Rest Tc-99m/stress Tc-99m 1 day Consent: The procedure was explained and understood by the patient. Informerd consent was witnessed Elodia Mckinney RN First, low dose rest was performed then high dose stress. RESTING DATA: The resting ekg shows: NSR Rest SPECT myocardial perfusion imaging was performed in supine position 61 minutes following the int ravenous injection of 10.6 mCi of Tc-99 Sestamibi. Time of rest injection: 90:0: Date: 06/13/2024 Time of rest imagin:01: Date: 06/13/2024 PHARMACOLOGIC STRESS: Pharmacologic stress test was performed by injecting regadenoson 0.4 mg IV push followed by the intra venous injection of 32.4 mCi of Tc-99 Sestamibi. Time of stress injection: 10:22: Date: 06/13/2024 Time of stress imagin:43: Date: 06/13/2024 Heart Rate at time of stress injection: 62 bpm. Gated Stress SPECT was performed 81 minutes after stress injection. The images were gated to evaluate regional wall motion and calculate left ventricular ejection fracti on. STRESS DETAILS Reason for Termination: Infusion complete Stress Symptoms: Dyspnea, Flushing Max HR Achieved: 81 bpm % of APMHR Achieved: 54 Max Blood Pressure: 147/78 mmHg Stress ECG: NSR Study quality was good. Lung uptake was Normal. Artifact: No artifact IMPRESSION Normal pharmacologic nuclear stress test. Conclusion Normal perfusion. LVEF 75%.
== END | disposition home or self-care (01) ==
LOC: SHCH 08:41
PROVIDERS: ATTEND Internal Medicine Cardiovascular Disease
DX: I25.119 Atherosclerotic heart disease of native coronary artery with unspecified angina pectoris (principal); R06.00 Dyspnea, unspecified
CPT/HCPCS: 78452; 93017; J2785; A9500 ×2